=== PATIENT | female | born 1995 | race Caucasian/White ===

== ENCOUNTER 2023-07-16 18:59 | Emergency (ER) | payer OTHER, SELFPAY ==
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
[2023-07-16 19:22] VITALS: BP 130/84; PULSE 87; RESP 16; TEMP 36.7; O2SAT 100
[2023-07-16] MEDS: TETANUS,DIPHTHERIA,AC PERTUSSIS ADULT (0.5 ML) BOOSTRIX IM (19:30)
[2023-07-16] MEDS: SILVER SULFADIAZINE 1% CR 50 GM JAR (*BKC) 1 APPLIC TOPICAL (19:30)
== END 2023-07-16 19:42 | disposition home or self-care (01) ==
PROVIDERS: Emergency Provider Nurse Practitioner Family
DX: T24.211A Burn of second degree of right thigh, initial encounter (principal); T25.221A Burn of second degree of right foot, initial encounter; T31.0 Burns involving less than 10% of body surface; Z23 Encounter for immunization; X12.XXXA Contact with other hot fluids, initial encounter
CPT/HCPCS: 90471; 90715; 99212; A9270; G0463